=== PATIENT | female | born 1975 | race Two or more races ===

== ENCOUNTER 2018-06-02 12:44 | Inpatient (IN) | payer OTHER ==
[~2018-06-02] VITALS: Ht 162.6 cm; Wt 70.3 kg
[2018-06-12] MEDS ORDERED: LEVOTHYROXINE100 MCG PO (07:32)
[2018-06-12] MEDS ORDERED: GAS RELIEF125 MG PO (07:32)
[2018-06-12] MEDS ORDERED: IBUPROFEN800 MG PO (07:32)
[2018-06-12] MEDS ORDERED: DOCUSATE SODIU100 MG PO (07:32)
== END 2018-06-12 11:08 | disposition home or self-care, planned readmission (81) | DRG 743 ==
LOC: O/R 06-09 05:55 → OB/GYN 06-09 05:55 → SURH 06-09 07:00 → OB/GYN 06-09 10:06 → SURH 06-09 13:15 → OB/GYN 06-12 11:08
PROVIDERS: ADMIT Obstetrics & Gynecology
PROC: 0UT90ZZ Resection of Uterus, Open Approach (ICD-10-PCS; principal; 2018-06-09 07:00)
DX: D25.1 Intramural leiomyoma of uterus (principal); D25.0 Submucous leiomyoma of uterus; D25.2 Subserosal leiomyoma of uterus; N73.6 Female pelvic peritoneal adhesions (postinfective); N72 Inflammatory disease of cervix uteri